=== PATIENT | male | born 1970 | race Caucasian/White ===

== ENCOUNTER 2023-12-17 14:16 | Outpatient (CLI) | payer BC | END 2023-12-17 14:17 | disposition home or self-care (01) | LOC: SCSRAD 14:16 | PROVIDERS: ATTEND Physician Assistant | DX: S49.92XA Unspecified injury of left shoulder and upper arm, initial encounter (principal); S52.612A Displaced fracture of left ulna styloid process, initial encounter for closed fracture; S52.502A Unspecified fracture of the lower end of left radius, initial encounter for closed fracture ==

== ENCOUNTER 2023-12-22 15:35 | Day surgery (SDC) | payer BC ==
[2023-12-21 09:27] VITALS: BMI 43.5
[~2023-12-22 15:35] MED LIST: CEFAZOLIN 2 GM VIAL ONE; HYDROcodone/Acetaminophen 10/325 mg Tablet PO PRN; Lidocaine 2% PF 5 ML VIAL ONE; Midazolam HCl 2 mg/2 ml Vial ONE; Ondansetron PF 4 MG/2 ML Vial IVP PRN; PROPOFOL 20 ML ONE; Promethazine HCl 25 MG/ML VIAL IM PRN; Ropivacaine 0.2% 550 ML 550 ML NERVE BLCK SCH; Ropivacaine 0.2% HCl/PF 20 ML ONE; Ropivacaine 0.5% HCl/PF (150 MG/30 ML VIAL) ONE; Sodium Chloride 0.9% 100 ML ONE; Zolpidem Tartrate 5 MG TAB PO PRN; fentaNYL 50 mcg/mL 1 mL Vial ONE; fentaNYL PF 100 MCG/2 ML SYRINGE ONE; traMADol HCl 50 MG TAB PO PRN
[2023-12-22] MEDS ORDERED: HYDROcodone/Acetaminophen 5/325 mg Tablet ONE (15:38)
== END 2023-12-22 15:52 | disposition home or self-care (01) ==
LOC: SDC 15:35
PROVIDERS: ATTEND Orthopaedic Surgery
PROC: 0PSJ04Z Reposition Left Radius with Internal Fixation Device, Open Approach (ICD-10-PCS; principal; 2023-12-22)
DX: S52.502A Unspecified fracture of the lower end of left radius, initial encounter for closed fracture (principal); W01.0XXA Fall on same level from slipping, tripping and stumbling without subsequent striking against object, initial encounter; Z98.890 Other specified postprocedural states; F17.210 Nicotine dependence, cigarettes, uncomplicated
CPT/HCPCS: A4306; C1713; J2001; J2250; J2704; J2795; J3010; J3490